=== PATIENT | female | born 1980 | race Two or more races ===

== ENCOUNTER 2021-03-01 18:16 | Emergency (ER) | payer BC ==
[2021-03-01] MEDS ORDERED: Sodium Chloride 0.9% 10 ML Syringe FLUSH PRN (18:41)
[2021-03-01] MEDS ORDERED: Ketorolac 30 MG/ML SDV IVPUSH ONE (19:04)
--- NOTE | 2021-03-01 19:05 | EDM.PDOC ---
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 1 tab PO DAILY 03/01/21 [History] Coreg. 1 tab PO DAILY 03/01/21 [History] Imitrex. 1 tab PO ASDIRECTED PRN 03/01/21 [History] Propranol. 1 tab PO DAILY 03/01/21 [History] Protonix. 1 tab PO DAILY 03/01/21 [History] Qulipta. 1 tab PO ASDIRECTED PRN 03/01/21 [History] traZODone HCl [Trazodone HCl] 50 mg PO BEDTIME 03/01/21 [History] Course - Re-Assessments/Exams Free Text/Narrative Re-Assessment/Exam: 03/01/21 21:46 Pelvic ultrasound is read by Gabe as "2.0 cm probable hemorrhagic cyst in the left ovary. Recommend follow-up ultrasound in 6 weeks to recheck this finding." 03/01/21 21:50 Ultrasound results discussed with the patient. I will discharge her home with the recommendation that she take [id number] ibuprofen, and a referral to Dr. Barbosa, in the event that her pain fails to improve. Departure - Departure Time of Disposition: 21:51 Disposition: Home, Self-Care 01 Condition: Good Clinical Impression: Left ovarian cyst - Discharge Information *PRESCRIPTION DRUG MONITORING PROGRAM REVIEWED*: Not Applicable *COPY OF PRESCRIPTION DRUG MONITORING REPORT IN PATIENT ANA LILIA: Not Applicable Instructions: Ovarian Cyst Referrals: Jarret Salguero MD [Primary Care Provider] - Cole Barbosa MD [Physician] - Forms: ED Department Discharge Additional Instructions: You were seen in the emergency room for approximately 10 days of lower left abdominal pain. Work-up in the ER included numerous blood tests, urinalysis, and an ultrasound of your pelvis. The ultrasound confirmed that you have a 2.0 cm left ovarian cyst. The Radiologist recommends that you undergo a repeat ultrasound in 6 weeks. We recommend that you take [id number] ibuprofen, 3 tablets (600 mg) up to every 8 hours, with food, as needed for discomfort. Please follow-up with the Engineering Specialist Technician Dr. Cole Barbosa, if your pain fails to improve. If any other problems, please do not hesitate to return to the ER. <Derrell Fonseca - Last Filed: 03/02/21 11:01> ED HPI GENERAL MEDICAL PROBLEM - General Source of Information: Reports: Patient History Limitations: Reports: No Limitations, Other (The vital signs reveal a temp of 98, pulse 112, respiratory rate of 16, blood pressure 130/91, pulse ox 96% on room air.) - History of Present Illness INITIAL COMMENTS - FREE TEXT/NARRATIVE: 40-year-old female presents the emergency department today with complaints of left lower abdominal/pelvic pain for the last 1-1/2 weeks. States she does have a history of ovarian cysts many years ago and reports that this does feel similar to that however she states she also has a history of ectopic as well. States there is a possibility she could be . She states she has had a low-grade fever for the past week and a half 99 to as high as 101. Denies any nausea, vomiting or diarrhea. She denies any issues with constipation. She states her last bowel movement was today. She denies any shortness of breath or cough. She denies any urinary symptoms. She states the pain in her left lower quadrant is worse with movement with position changes. He states she has been taking Tylenol occasionally and this does not seem to help. 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 ED EXAM, GI/ABD - Physical Exam Exam: See Below Exam Limited By: No Limitations General Appearance: Alert, WD/WN, No Apparent Distress Ears: Normal External Exam, Hearing Grossly Normal Nose: Normal Inspection Throat/Mouth: Normal Inspection, Normal Lips, Normal Voice, No Airway Compromise Head: Atraumatic, Normocephalic Neck: Normal Inspection, Supple Respiratory/Chest: No Respiratory Distress, Lungs Clear, Normal Breath Sounds, No Accessory Muscle Use, Chest Non-Tender Cardiovascular: Normal Peripheral Pulses, Regular Rate, Rhythm, No Edema, No Murmur GI/Abdominal Exam: Normal Bowel Sounds, Soft, Non-Tender, No Distention (Female) Exam: Deferred Rectal (Female) Exam: Deferred Back Exam: Normal Inspection Extremities: Normal Inspection, Normal Range of Motion, Non-Tender, No Pedal Edema, Normal Capillary Refill Neurological: Alert, Oriented, Normal Cognition Psychiatric: Normal Affect, Normal Mood Skin Exam: Warm, Dry, Intact, Normal Color, No Rash Lymphatic: No Adenopathy Course - Vital Signs Text/Narrative:: As stated above, patient presents with a 1-1/2-week history of left lower quadrant abdominal discomfort. Physical exam is unremarkable. Pain is not producible with palpation. Will obtain urinalysis with micro and culture if indicated as well as a urine test will also obtain lab studies to include a CBC, CMP, magnesium and a C-reactive protein level. We will have nursing staff place a saline lock and patient will be medicated with Toradol. Last Recorded V/S: Last Vital Signs Temp 98 F 03/01/21 18:24 Pulse 112 H 03/01/21 18:24 Resp 16 03/01/21 18:24 BP 130/91 H 03/01/21 18:24 Pulse Ox 96 03/01/21 18:24 - Orders/Labs/Meds Orders: Active Orders 24 hr Category Date Time Status Saline Lock Insert [OM.PC] Stat Oth 03/01/21 18:41 Ordered Labs: Laboratory Tests 03/01/21 03/01/21 03/01/21 Range/Units 18:30 18:30 19:20 WBC 9.39 (3.98-10.04) K/mm3 RBC 4.46 (3.98-5.22) M/mm3 Hgb 13.5 (11.2-15.7) gm/dl Hct 40.9 (34.1-44.9) % MCV 91.7 (79.4-94.8) fl MCH 30.3 (25.6-32.2) pg MCHC 33.0 (32.2-35.5) g/dl RDW Std Deviation 40.9 (36.4-46.3) fL Plt Count 321 (182-369) K/mm3 MPV 9.4 (9.4-12.3) fl Neut % (Auto) 46.5 (34.0-71.1) % Lymph % (Auto) 39.5 (19.3-51.7) % [place] % (Auto) 10.0 (4.7-12.5) % Eos % (Auto) 3.3 (0.7-5.8) Baso % (Auto) 0.6 (0.1-1.2) % Neut # (Auto) 4.36 (1.56-6.13) K/mm3 Lymph # (Auto) 3.71 (1.18-3.74) K/mm3 [place] # (Auto) 0.94 H (0.24-0.36) K/mm3 Eos # (Auto) 0.31 (0.04-0.36) K/mm3 Baso # (Auto) 0.06 (0.01-0.08) K/mm3 Sodium (136-145) mEq/L Potassium (3.5-5.1) mEq/L Chloride (98-107) mEq/L Carbon Dioxide (21-32) mEq/L Anion Gap (5-15) BUN (7-18) mg/dL Creatinine (0.55-1.02) mg/dL Est Cr Clr Drug Dosing mL/min Estimated GFR (MDRD) (>60) mL/min BUN/Creatinine Ratio (14-18) Glucose (70-99) mg/dL Calcium (8.5-10.1) mg/dL Magnesium (1.8-2.4) mg/dL Total Bilirubin (0.2-1.0) mg/dL AST (15-37) U/L ALT (14-59) U/L Alkaline Phosphatase (46-116) U/L C-Reactive Protein (<1.0) mg/dL Total Protein (6.4-8.2) g/dl Albumin (3.4-5.0) g/dl Globulin gm/dL Albumin/Globulin Ratio (1-2) Urine Color Yellow (Yellow) Urine Appearance Slt cloudy H (Clear) Urine pH 6.0 (5.0-8.0) Ur Specific [place] > or = 1.030 (1.005-1.030) Urine Protein Negative (Negative) Urine Glucose (UA) Negative (Negative) Urine Ketones Negative (Negative) Urine Occult Blood Negative (Negative) Urine Nitrite Negative (Negative) Urine Bilirubin Negative (Negative) Urine Urobilinogen 1.0 (0.2-1.0) Ur Leukocyte Esterase Negative (Negative) Urine HCG, Qual Negative (NEGATIVE) 03/01/21 Range/Units 19:20 WBC (3.98-10.04) K/mm3 RBC (3.98-5.22) M/mm3 Hgb (11.2-15.7) gm/dl Hct (34.1-44.9) % MCV (79.4-94.8) fl MCH (25.6-32.2) pg MCHC (32.2-35.5) g/dl RDW Std Deviation (36.4-46.3) fL Plt Count (182-369) K/mm3 MPV (9.4-12.3) fl Neut % (Auto) (34.0-71.1) % Lymph % (Auto) (19.3-51.7) % [place] % (Auto) (4.7-12.5) % Eos % (Auto) (0.7-5.8) Baso % (Auto) (0.1-1.2) % Neut # (Auto) (1.56-6.13) K/mm3 Lymph # (Auto) (1.18-3.74) K/mm3 [place] # (Auto) (0.24-0.36) K/mm3 Eos # (Auto) (0.04-0.36) K/mm3 Baso # (Auto) (0.01-0.08) K/mm3 Sodium 139 (136-145) mEq/L Potassium 4.1 (3.5-5.1) mEq/L Chloride 104 (98-107) mEq/L Carbon Dioxide 27 (21-32) mEq/L Anion Gap 12.1 (5-15) BUN 11 (7-18) mg/dL Creatinine 0.8 (0.55-1.02) mg/dL Est Cr Clr Drug Dosing 85.76 mL/min Estimated GFR (MDRD) > 60 (>60) mL/min BUN/Creatinine Ratio 13.8 L (14-18) Glucose 124 H (70-99) mg/dL Calcium 8.8 (8.5-10.1) mg/dL Magnesium 1.9 (1.8-2.4) mg/dL Total Bilirubin 0.4 (0.2-1.0) mg/dL AST 84 H (15-37) U/L ALT 126 H (14-59) U/L Alkaline Phosphatase 57 (46-116) U/L C-Reactive Protein <0.2 (<1.0) mg/dL Total Protein 6.4 (6.4-8.2) g/dl Albumin 3.5 (3.4-5.0) g/dl Globulin 2.9 gm/dL Albumin/Globulin Ratio 1.2 (1-2) Urine Color (Yellow) Urine Appearance (Clear) Urine pH (5.0-8.0) Ur Specific [place] (1.005-1.030) Urine Protein (Negative) Urine Glucose (UA) (Negative) Urine Ketones (Negative) Urine Occult Blood (Negative) Urine Nitrite (Negative) Urine Bilirubin (Negative) Urine Urobilinogen (0.2-1.0) Ur Leukocyte Esterase (Negative) Urine HCG, Qual (NEGATIVE) Meds: Medications Discontinued Medications Generic Name Dose Route Start Last Admin Trade Name Freq PRN Reason Stop Dose Admin Ketorolac Tromethamine 30 mg 03/01/21 19:04 03/01/21 19:23 Ketorolac 30 Mg/Ml Sdv IVPUSH 03/01/21 19:05 30 mg ONETIME ONE Administration Sodium Chloride 10 ml 03/01/21 18:41 03/01/21 19:24 Sodium Chloride 0.9% 10 Ml Syringe FLUSH 10 ml ASDIRECTED PRN Administration Keep Vein Open - Re-Assessments/Exams Free Text/Narrative Re-Assessment/Exam: 03/01/21 19:48 Hematology is unremarkable Urinalysis is also unremarkable and urine test is negative. Remainder of the patient's labs are pending however I have ordered a non-OB transvaginal ultrasound on the patient. Went into reevaluate the patient and update her. She states that Toradol was ef fective in relieving her pain. 03/01/21 19:53 Chemistry reveals a glucose of 124, potassium 4.1, magnesium 1.9, total bilirubin 0.4, AST 84, ALT 126, alk phos 157, C-reactive protein less than 0.2 Sepsis Event Note (ED) - Evaluation Sepsis Screening Result: No Definite Risk - My Orders Last 24 Hours: My Active Orders 03/01/21 18:41 Saline Lock Insert [OM.PC] Stat - Assessment/Plan Last 24 Hours: My Active Orders 03/01/21 18:41 Saline Lock Insert [OM.PC] Stat
--- NOTE | 2021-03-02 07:33 | US ---
Pelvic ultrasound: Multiple real-time images of the pelvis were obtained. Comparison: No prior pelvic imaging is available. Findings: Uterus is anteverted. No myometrial abnormality is seen. Endometrial thickness is 8.8 mm. Nabothian cysts are noted with largest measuring 5 mm. Right ovary shows a small peripheral cyst measuring 9 mm which is believed to be incidental. Small hypoechoic area is seen within the left ovary which is believed to represent a collapsing cyst. Simple cyst is noted peripherally measuring 1.9 cm. Minimal free fluid is seen within the cul-de-sac which is felt to be physiologic. Measurements: Right ovary: 3.8 x 1.8 x 2.0 cm Left ovary: 4.5 x 2.1 x 2.2 cm Uterus: Length 8.7 cm, AP height 3.8 cm, transverse with 4.8 cm Impression: 1. Small cysts within both ovaries most likely incidental. 2. Fluid within the cul-de-sac believed to be physiologic. 3. Nabothian cysts are present. 4. No enlarged ovary is seen to indicate a torsion. Diagnostic code #2 I agree with preliminary report from [facility], finalized on 03/01/21, 10:43 PM CAR ESCORT, code 1
== END 2021-03-01 22:23 | disposition home or self-care (01) ==
LOC: JD.ED 18:16
DX: N83.202 Unspecified ovarian cyst, left side (principal); I10 Essential (primary) hypertension; K21.9 Gastro-esophageal reflux disease without esophagitis; Z88.5 Allergy status to narcotic agent; Z88.8 Allergy status to other drugs, medicaments and biological substances
CPT/HCPCS: 36415; 76830; 80053; 81003; 81025; 83735; 85025; 86140; 96374; 99284; J1885

== ENCOUNTER 2021-08-04 16:40 | Emergency (ER) | payer BC ==
[2021-08-04 19:33] LABS: VITAMIN D,25-HYDROXY 26.7 ng/ml (30.0-100.0)
== END 2021-08-04 20:23 | disposition home or self-care (01) ==
LOC: JD.ED 16:40
DX: E55.9 Vitamin D deficiency, unspecified (principal); I10 Essential (primary) hypertension; Z88.5 Allergy status to narcotic agent; Z88.8 Allergy status to other drugs, medicaments and biological substances; Z86.16 Personal history of COVID-19
CPT/HCPCS: 36415; 71045; 71045-26; 80053; 82306; 83735; 84443; 84484; 85025; 86140; 93005; 99285-25